=== PATIENT | male | born 1960 | race Caucasian/White ===

== ENCOUNTER 2023-08-18 18:02 | Emergency (ER) | payer SELFPAY ==
[2023-08-18 18:04] VITALS: BP 134/63; PULSE 63; RESP 14; TEMP 36.8; O2SAT 99; BMI 25.0
[2023-08-18 18:07] VITALS: BP 134/63; PULSE 88; O2SAT 98
--- NOTE | 2023-08-18 18:23 | DI.CT.S_ITS ---
PROCEDURE: CT HEAD/BRAIN WO CON INDICATIONS: fall TECHNIQUE: Noncontrast 4.5 mm thick angled axial sections acquired from the foramen magnum to the vertex, with coronal and sagittal reformats. For radiation dose reduction, the following was used: automated exposure control, adjustment of mA and/or kV according to patient size. COMPARISON: None. FINDINGS: Image quality: Diagnostic. CSF spaces: Basal cisterns are patent. No extra-axial fluid collections. Ventricles are normal in size and shape. Brain: No midline shift. No intracranial masses or hemorrhage. Hung-white matter interface is normal. Skull and face: Calvarium and visualized facial bones are intact, without suspicious lesions. Sinuses: Left-sided mastoid air cell effusion. IMPRESSION: No acute intracranial pathology. Left mastoid air cell effusion. Dictated by: Iván Jennings M.D. on 08/18/2023 at 19:42 Approved by: Iván Jennings M.D. on 08/18/2023 at 19:44
--- NOTE | 2023-08-18 18:24 | DI.CT.S_ITS ---
PROCEDURE: CT CERVICAL SPINE WO CON INDICATIONS: fall TECHNIQUE: Noncontrast 3 mm thick sections acquired from the skull base to the T4 level. Sagittal and coronal reformats were then constructed. For radiation dose reduction, the following was used: automated exposure control, adjustment of mA and/or kV according to patient size. COMPARISON: None. FINDINGS: Image quality: Excellent. Bones: No fractures or dislocations. Visualized superior ribs are intact. Soft tissues: Prevertebral soft tissues are normal in thickness. No paravertebral hematomas. No apical pneumothoraces. IMPRESSION: No displaced fracture or traumatic subluxation. Dictated by: Iván Jennings M.D. on 08/18/2023 at 19:44 Approved by: Iván Jennings M.D. on 08/18/2023 at 19:46
[2023-08-18 18:30] VITALS: BP 144/67; PULSE 72; O2SAT 97
--- NOTE | 2023-08-18 18:34 | ED_ITS ---
HPI - Fall General Chief Complaint: Fall Stated Complaint: fall, no thinners, head lac Time Seen by Provider: 08/18/23 18:17 Source: patient and EMS Mode of arrival: EMS History of Present Illness HPI Narrative: Patient is a 62-year-old male who is brought in by EMS for evaluation of a fall. He has not on blood thinners. There is reported alcohol involvement. He states he was walking outside and slipped. He states his hands in his pockets and he fell forward hitting his head on the ground. He does not think that he lost consciousness. He was also reporting some right hand pain but has full range of motion of his hand. He was able to get up on his own afterwards but stated that he fell again after this. No headache. Has a small contusion above his right eye. Related Data Allergies Allergy/AdvReac Type Severity Reaction Status Date / Time No Known Drug Allergies Allergy Verified 08/18/23 18:10 Review of Systems Constitutional Constitutional: Reports system reviewed and no additional complaints, except as documented Cardiovascular Cardiovascular: Reports system reviewed and no additional complaints, except as documented Respiratory Respiratory: Reports system reviewed and no additional complaints, except as documented Gastrointestinal Gastrointestinal: Reports system reviewed and no additional complaints, except as documented Musculoskeletal Musculoskeletal: Reports system reviewed and no additional complaints, except as documented Integumentary/Breasts Skin/Breast: Reports system reviewed and no additional complaints, except as documented Neurologic Neurologic: Reports system reviewed and no additional complaints, except as documented Hematologic/Lymphatic On Anticoagulants: No Patient History Social History Smoking Status: Unknown if ever smoked Smoking Status: Unknown if ever smoked alcohol intake frequency: 3 or more drinks per day Alcohol type: hard liquor Substance Use Type: does not use Exam Initial Vital Signs Initial Vital Signs: Vital Signs Temperature 98.3 F 08/18/23 18:04 Pulse Rate 63 08/18/23 18:04 Respiratory Rate 14 08/18/23 18:04 Blood Pressure 134/63 08/18/23 18:04 Pulse Oximetry 99 08/18/23 18:04 Oxygen Delivery Method Room Air 08/18/23 18:04 HENMT Head: abrasion (Above right eye) and contusion (Above right eye) Mouth: other (Missing upper teeth but this is not new) Resp Effort & Inspection: normal respiratory effort Cardio Rate: regular rate GI Inspection: normal to inspection Back/Spine/Pelvis Cervical Spine: No cervical spinal tenderness Skin Other: Contusion and a slight abrasion above right eye Neuro General: patient alert, patient awake, patient oriented x3 and moves all extremities Extrem Other: Reports right-hand discomfort but has full range of motion Scores GCS [place] coma scale eye opening: Spontaneous [place] coma scale verbal response: Orientated [place] coma scale motor response: Obey commands [place] coma scale total score: 15 Nexus Score for C-Spine Focal Neurologic deficit present: No Midline spinal tenderness present: No Altered level of conciousness present: No Intoxication present: Yes Distracting Injury Present: No Nexus Criteria for C-spine: 1 Course Orders Ordered: ED Orders 08/18/23 18:23 CT head/brain wo con Stat 08/18/23 18:24 CT cervical spine wo con Stat Vital Signs Vital signs: Vital Signs - 8 hr 08/18/23 18:04 08/18/23 18:07 08/18/23 18:07 Temperature 98.3 F Pulse Rate 63 88 Respiratory Rate 14 Blood Pressure 134/63 134/63 Pulse Oximetry 99 98 Oxygen Delivery Method Room Air 08/18/23 18:30 08/18/23 18:30 08/18/23 19:00 Temperature Pulse Rate 72 Respiratory Rate Blood Pressure 144/67 H 124/62 Pulse Oximetry 97 Oxygen Delivery Method Room Air 08/18/23 19:00 08/18/23 19:30 Temperature Pulse Rate 69 69 Respiratory Rate Blood Pressure Pulse Oximetry 99 97 Oxygen Delivery Method MDM - Fall Imaging Data CT scan - head: Radiologist's Impression: PROCEDURE: CT HEAD/BRAIN WO CON INDICATIONS: fall TECHNIQUE: Noncontrast 4.5 mm thick angled axial sections acquired from the foramen magnum to the vertex, with coronal and sagittal reformats. For radiation dose reduction, the following was used: automated exposure control, adjustment of mA and/or kV according to patient size. COMPARISON: None. FINDINGS: Image quality: Diagnostic. CSF spaces: Basal cisterns are patent. No extra-axial fluid collections. Ventricles are normal in size and shape. Brain: No midline shift. No intracranial masses or hemorrhage. Hung-white matter interface is normal. Skull and face: Calvarium and visualized facial bones are intact, without suspicious lesions. Sinuses: Left-sided mastoid air cell effusion. IMPRESSION: No acute intracranial pathology. Left mastoid air cell effusion. CT - cervical spine: Radiologist's Impression: PROCEDURE: CT CERVICAL SPINE WO CON INDICATIONS: fall TECHNIQUE: Noncontrast 3 mm thick sections acquired from the skull base to the T4 level. Sagittal and coronal reformats were then constructed. For radiation dose reduction, the following was used: automated exposure control, adjustment of mA and/or kV according to patient size. COMPARISON: None. FINDINGS: Image quality: Excellent. Bones: No fractures or dislocations. Visualized superior ribs are intact. Soft tissues: Prevertebral soft tissues are normal in thickness. No paravertebral hematomas. No apical pneumothoraces. IMPRESSION: No displaced fracture or traumatic subluxation. MDM Narrative Medical decision making narrative: Head CT and cervical spine CT are unremarkable. He was able to ambulate here in the emergency department without any instability. The contusion above his right eye needs no specific intervention. Initially was going to x-ray his right hand given the discomfort that he was having but he declined this. This does sound like a mechanical fall as he slipped. Most likely in the setting of alcohol use. Will discharge patient home with return precautions. He expressed understanding and agreement. Discharge Plan Departure Patient Disposition: Home Clinical Impression: Contusion of forehead Instructions: DI for Contusion Activity Restrictions/Additional Instructions: The CT scans today did not show any signs of skull fractures or any other facial fractures or head bleed. Contact your primary doctor for a follow-up. Return to the emergency department for new symptoms. Referrals: Miscellaneous,MD Timoteo [Primary Care Provider] - Stand Alone Forms: Patient Portal/API
[2023-08-18 19:00] VITALS: BP 124/62; PULSE 69; O2SAT 99
--- NOTE | 2023-08-18 19:25 | PC.NURSE ---
Pt only endorses some facial pain from fall. No crepitous. Pt is sitting in bed comfortably at his time. Denies any head, neck or back pain. AAOx4, MAEW. Denies any other complaints at this time.
[2023-08-18 19:30] VITALS: PULSE 69; O2SAT 97
--- NOTE | 2023-08-18 19:55 | PC.NURSE ---
Pt ambulated well to bathroom without assistance. Denies any dizziness or weakness. No other complaints at this time.
== END 2023-08-18 20:09 | disposition home or self-care (01) ==
PROVIDERS: Emergency Provider Emergency Medicine
DX: S00.83XA Contusion of other part of head, initial encounter (principal); W01.0XXA Fall on same level from slipping, tripping and stumbling without subsequent striking against object, initial encounter
CPT/HCPCS: 70450; 72125; 99281; 99284